=== PATIENT | male | born 1985 | race American Indian/Alaskan Native ===

== ENCOUNTER 2017-08-15 07:25 | Emergency (ER) | payer MEDICAID ==
[2017-08-15 07:34] VITALS: O2SAT 95
[2017-08-15] MEDS ORDERED: chlordiazePOXIDE 25 MG CAP PO ONE (07:42)
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
[2017-08-15 08:49] VITALS: BP 132/71; PULSE 109; RESP 18; TEMP 98.4
== END 2017-08-15 08:48 | disposition home or self-care (01) ==
LOC: EEVIPCON 07:25
DX: S22.42XA Multiple fractures of ribs, left side, initial encounter for closed fracture (principal); S80.02XA Contusion of left knee, initial encounter; S00.83XA Contusion of other part of head, initial encounter; F10.10 Alcohol abuse, uncomplicated; F17.200 Nicotine dependence, unspecified, uncomplicated; Y04.0XXA Assault by unarmed brawl or fight, initial encounter; Y99.8 Other external cause status; Y93.89 Activity, other specified